=== PATIENT | female | born 1955 | race African-American/Black ===

== ENCOUNTER 2017-04-15 18:01 | Emergency (ER) | payer OTHER ==
[~2017-04-15] VITALS: Ht 154.9 cm; Wt 120.0 kg
[~2017-04-15 18:01] MED LIST: ASPI81 PO; AUGM875T PO; CELE40TA PO; FURO80TA3 PO; GLIP5 PO; HYDR10TA16 PO; HYDR200T42 PO; IBUP600T26 PO; KLOR20TA6 PO; LEFL20 PO; LORA10TA7 PO; MOME17I; RISP2TAB2 PO; SPIR25 PO; SULF500T35 PO; TRAZ150T2 PO
[2017-04-15 18:05] VITALS: BP 157/93; PULSE 104; RESP 18; TEMP 97.8; O2SAT 98
--- NOTE | 2017-04-15 19:17 | PD ---
HPI Chief Complaint: Injury Time Seen by Provider: 19:14 Travel History International Travel<30 days: No Contact w/Intl Traveler<30days: No Traveled to known affect area: No History of Present Illness HPI 62-year-old [id number] black female presents to emergency department complaints of right little finger pain after a fall prior to arrival. She states that she is unsure how she had injured her finger. She states that she has moderate to severe pain diffusely in her finger. She has been icing it down. She has had limited range of motion due to pain. No sensory changes. Denies injury to her head, neck or back. PFSH Past Medical History Hx Anticoagulant Therapy: No Atrial Fibrillation: Yes Cardiovascular Problems: Yes (AFIB) Diabetes: Yes Diminished Hearing: No Hypertension: Yes Musculoskeletal: Yes (FIBROMYALGIA) Psychiatric: Yes Migraines: Yes Sleep Apnea: Yes Menopausal: Yes Past Surgical History Cholecystectomy: Yes Hysterectomy: Yes Joint Replacement: Yes (KYRA. TOTAL KNEE ARTHROPLASTY) Social History Alcohol Use: No Tobacco Use: No Substance Use: No Allergies-Medications (Allergen,Severity, Reaction): Coded Allergies: Tramadol (Unverified Allergy, Intermediate, FELICIANO, 04/15/17) Toradol (Verified Allergy, Mild, N/V, 04/15/17) Reported Meds & Prescriptions Reported Meds & Active Scripts Active Lortab (Hydrocodone-Acetaminophen) 5-325 Mg Tab 1 Tab PO Q6H PRN Review of Systems Except as stated in HPI: all other systems reviewed are Neg Physical Exam Narrative GENERAL: This is a well-nourished, well-developed patient, in no apparent distress. SKIN: No rashes, ecchymoses or lesions. Warm and dry. HEAD: Atraumatic. Normocephalic. EYES: PERRL, EOMI, no discharge or injection. No scleral icterus. EARS: Clear NOSE: Nasal turbinates appear normal. THROAT: Mucosa pink and moist. Airway patent. NECK: Trachea midline. supple, moves head freely. LUNGS: Clear to auscultation. CV: Regular in rhythm. ABDOMEN: Soft nontender. EXT: No clubbing cyanosis. Examination of the right hand reveals pain and swelling with ecchymosis to the little finger. She has more localizing pain to the proximal mid phalanx. She has intact gross sensation with good Refill. She has significant decreased range of motion due to pain. She is able to fully extend but is limited flexion. Data Data Last Documented VS Vital Signs Date Time Temp Pulse Resp B/P Pulse Ox O2 Delivery O2 Flow Rate FiO2 04/15/17 18:05 97.8 104 18 157/93 98 Orders Finger ([id number]) (04/15/17 19:14) Ice/Cold Pack (04/15/17 19:14) Splint Or Brace Apply/Monitor (04/15/17 19:46) MDM Medical Decision Making Medical Screen Exam Complete: Yes Emergency Medical Condition: Yes Medical Record Reviewed: Yes Interpretation(s) Right little finger: Patient has a spiral fracture of the mid phalanx. Minimal disbursement Differential Diagnosis MDM: High Differential diagnoses: Fracture, sprain, strain, dislocation, contusion, neurovascular injury Narrative Course Ice pack applied. X-ray of the right little finger. Patient's x-ray reveals a fracture of the mid phalanx. She is placed in a finger splint. Lortab 5 milligram by mouth for pain. Diagnosis Primary Impression: Fracture of middle phalanx of right little finger Patient Instructions: Moderate Sedation in Children (ED) Additional Instructions: Rest. Elevation. Ice. Splint. Lortab. Follow-up with the orthopedic hand surgeon in the next 3-5 days. Med/Other Pt SpecificInfo: Prescription(s) given Scripts Hydrocodone-Acetaminophen (Lortab)5-325 Mg Tab1 Tab PO Q6H PRN (PAIN) #20 TAB Prov:Wilma Rojas MD 04/15/17 Disposition: 01 DISCHARGE HOME Condition: Stable Harlan Moncada Apr 15, 2017 19:17
[2017-04-15] MEDS ORDERED: HYDR-3533 PO (19:25)
--- NOTE | 2017-04-15 19:43 | RADRPT ---
EXAM DATE/TIME: 04/15/2017 19:27 [facility] COMPARISON: No previous studies available for comparison. INDICATIONS : Right hand, fifth digit pain, swelling, and bruising after fall. MEDICAL HISTORY : Diabetes mellitus type II. Rheumatoid arthritis. SURGICAL HISTORY : None. ENCOUNTER: Initial ACUITY: 1 day PAIN SCORE: 9/10 LOCATION: Right hand, 5th digit. FINDINGS: There is an acute fracture involving the right 5th middle phalanx with involvement of the proximal ar ticular surface. Diffuse osteopenia of the right hand is noted. Joint space narrowing is noted invo lving the 1st carpometacarpal joint, 1st and 2nd metacarpophalangeal joints and 1st interphalangeal j oint. Joint space narrowing is also noted involving the scaphotrapezium and scaphotrapezoid joints. CONCLUSION: 1. Acute fracture involving the right 5th middle phalanx with involvement of the proximal articular surface. 2. Diffuse osteopenia. 3. Joint space narrowing involving the joints of the right thumb, 2nd metacarpophalangeal joint and scaphotrapezium/scaphotrapezoid joints. Ronald Mckeon MD on April 15, 2017 at 19:37 Board Certified Radiologist. This report was verified electronically.
[2017-04-15] MEDS ORDERED: ACETAMINOPHEN/HYDROcodone 325 MG/5 MG TAB PO ONE (20:00)
== END 2017-04-15 20:26 | disposition home or self-care (01) ==
LOC: NEPK 18:01
DX: S62.626A Displaced fracture of middle phalanx of right little finger, initial encounter for closed fracture (principal); I48.91 Unspecified atrial fibrillation; E11.9 Type 2 diabetes mellitus without complications; I10 Essential (primary) hypertension; M79.7 Fibromyalgia; G47.30 Sleep apnea, unspecified; W18.30XA Fall on same level, unspecified, initial encounter
CPT/HCPCS: 29130; 73140

== ENCOUNTER 2017-04-25 01:08 | Emergency (ER) | payer OTHER ==
[~2017-04-25] VITALS: Ht 157.5 cm; Wt 120.0 kg
[~2017-04-25 01:08] MED LIST changes: -ASPI81 PO; -AUGM875T PO; -CELE40TA PO; -FURO80TA3 PO; -GLIP5 PO; +HYDR-3533 PO; -HYDR10TA16 PO; -HYDR200T42 PO; -IBUP600T26 PO; -KLOR20TA6 PO; -LEFL20 PO; -LORA10TA7 PO; -MOME17I; -RISP2TAB2 PO; -SPIR25 PO; -SULF500T35 PO; -TRAZ150T2 PO
[2017-04-25 01:11] VITALS: BP 178/96; PULSE 71; RESP 20; TEMP 98.6; O2SAT 98
--- NOTE | 2017-04-25 01:28 | PD ---
HPI Chief Complaint: Edema Time Seen by Provider: 01:20 Travel History International Travel<30 days: No Contact w/Intl Traveler<30days: No Traveled to known affect area: No History of Present Illness HPI 62-year-old female here for evaluation of right lower extremity edema. Patient reports history of lower extremity edema, right greater than left. She states that she just returned home from a trip to [place] about an hour and a half ago. While she was on the trip she forgot to take her Lasix with her and believes that this may be the reason why her leg is more swollen than usual. She denies chest pain or dyspnea. She is a mild pain in the right leg. No trauma. No fevers or chills. No history of DVT or PE. PFSH Past Medical History Hx Anticoagulant Therapy: No Atrial Fibrillation: Yes Cardiovascular Problems: Yes (AFIB) Diabetes: Yes Patient Takes Glucophage: No Diminished Hearing: No Hypertension: Yes Musculoskeletal: Yes (FIBROMYALGIA) Psychiatric: Yes Migraines: Yes Sleep Apnea: Yes Tetanus Vaccination: Unknown Influenza Vaccination: No Menopausal: Yes Past Surgical History Cholecystectomy: Yes Hysterectomy: Yes Joint Replacement: Yes (KYRA. TOTAL KNEE ARTHROPLASTY) Social History Alcohol Use: No Tobacco Use: No Substance Use: No Allergies-Medications (Allergen,Severity, Reaction): Coded Allergies: Tramadol (Unverified Allergy, Intermediate, FELICIANO, 04/15/17) Toradol (Verified Allergy, Mild, N/V, 04/15/17) Reported Meds & Prescriptions Reported Meds & Active Scripts Active Lortab (Hydrocodone-Acetaminophen) 5-325 Mg Tab 1 Tab PO Q6H PRN Reported Lasix (Furosemide) 40 Mg Tab 40 Mg PO DAILY Spironolactone 25 Mg Tab 25 Mg PO DAILY Potassium Chloride ER (Potassium Chloride) 20 Meq Tab 20 Meq PO DAILY Glipizide 5 Mg Tab 5 Mg PO DAILY Take 30 minutes before a meal Risperdal (Risperidone) 1 Mg Tab 5 Mg PO EVERY OTHER DAY Celexa (Citalopram Hydrobromide) 10 Mg Tab 60 Mg PO DAILY Review of Systems Except as stated in HPI: all other systems reviewed are Neg Physical Exam Narrative GENERAL: Pleasant, well-developed, well-nourished, sitting comfortably on chair , no apparent distress. SKIN: Focused skin assessment warm/dry. No pallor. No rashes. HEAD: Atraumatic. Normocephalic. EYES: Pupils equal and round. No scleral icterus. No injection or drainage. ENT: Mucous membranes pink and moist. NECK: Trachea midline. No JVD. CARDIOVASCULAR: Regular rate and rhythm. No murmur appreciated. RESPIRATORY: No accessory muscle use. Clear to auscultation. Breath sounds equal bilaterally. GASTROINTESTINAL: Abdomen soft, non-tender, nondistended. MUSCULOSKELETAL: No obvious deformities. No clubbing. No cyanosis. Mild left lower extremity edema. There is significant right lower extremity edema with the diameter of the right leg about double the diameter of the left leg. All compartments in the right lower extremity are supple. There is no tenderness or crepitus. NEUROLOGICAL: Awake and alert. No obvious cranial nerve deficits. Motor grossly within normal limits. Normal speech. PSYCHIATRIC: Appropriate mood and affect; insight and judgment normal. Data Data Last Documented VS Vital Signs Date Time Temp Pulse Resp B/P Pulse Ox O2 Delivery O2 Flow Rate FiO2 04/25/17 03:22 53 16 142/75 98 Room Air 04/25/17 01:11 98.6 Orders Basic Metabolic Panel (Bmp) (04/25/17 01:25) Complete Blood Count With Diff (04/25/17 01:25) Iv Access Insert/Monitor (04/25/17 01:25) Ecg Monitoring (04/25/17 01:25) Oximetry (04/25/17 01:25) Sodium Chloride 0.9% Flush (Ns Flush) (04/25/17 01:30) B-Type Natriuretic Peptide (04/25/17 01:25) Us Leg Venous Doppler (04/25/17 ) Furosemide Inj (Lasix Inj) (04/25/17 02:30) Labs Laboratory Tests Test 04/25/17 04/25/17 01:39 01:41 White Blood Count 7.0 TH/MM3 Red Blood Count 3.73 MIL/MM3 Hemoglobin 11.1 GM/DL Hematocrit 33.2 % Mean Corpuscular Volume 89.0 FL Mean Corpuscular Hemoglobin 29.7 PG Mean Corpuscular Hemoglobin 33.4 % Concent Red Cell Distribution Width 14.5 % Platelet Count 229 TH/MM3 Mean Platelet Volume 8.7 FL Neutrophils (%) (Auto) 55.1 % Lymphocytes (%) (Auto) 30.4 % Monocytes (%) (Auto) 7.6 % Eosinophils (%) (Auto) 6.5 % Basophils (%) (Auto) 0.4 % Neutrophils # (Auto) 3.8 TH/MM3 Lymphocytes # (Auto) 2.1 TH/MM3 Monocytes # (Auto) 0.5 TH/MM3 Eosinophils # (Auto) 0.5 TH/MM3 Basophils # (Auto) 0.0 TH/MM3 CBC Comment DIFF FINAL Differential Comment Sodium Level 141 MEQ/L Potassium Level 3.8 MEQ/L Chloride Level 108 MEQ/L Carbon Dioxide Level 28.0 MEQ/L Anion Gap 5 MEQ/L Blood Urea Nitrogen 10 MG/DL Creatinine 0.52 MG/DL Estimat Glomerular Filtration 145 ML/MIN Rate Random Glucose 106 MG/DL Calcium Level 8.5 MG/DL B-Type Natriuretic Peptide 10 PG/ML MDM Medical Decision Making Medical Screen Exam Complete: Yes Emergency Medical Condition: Yes Medical Record Reviewed: Yes Differential Diagnosis DVT, venous insufficiency, fluid overload Narrative Course Vital signs show heart rate 71, blood pressure 178/96, pulse ox 98% on room air , oral temp of 98.6 Fahrenheit. CBC shows WBC 7, hemoglobin 11.1, hematocrit 33.2, platelets 229. CMP is unremarkable. BNP is 10. Right lower extremity venous ultrasound: Negative for DVT. Patient was made aware of all findings. She is resting comfortably. She was given 40 mg of IV Lasix here. She is stable for discharge home and states she hasn't point with her primary care physician in 3 days. She is requesting a refill of her potassium. She states she has plenty of Lasix at home. She is stable for discharge home with outpatient follow-up. She was informed on when to return to the emergency department. She verbalizes understanding and agreement with plan. Diagnosis Primary Impression: Leg edema, right Referrals: Primary Care Physician 3 days Additional Instructions: Follow-up with your primary care physician this week as scheduled. Return to the emergency department for worsening symptoms or any other concerns. Scripts Potassium Chloride ER 10 Meq Tab10 Meq PO DAILY #30 TAB Ref 0 Prov:Hay Moreira MD 04/25/17 Disposition: DISCHARGE HOME Condition: Stable Hay Moreira MD Apr 25, 2017 01:28
[2017-04-25] MEDS ORDERED: POTA-163 PO (01:30)
[2017-04-25] MEDS ORDERED: GLIP5TAB8 PO (01:30)
[2017-04-25] MEDS ORDERED: CELE10TA PO (01:30)
[2017-04-25] MEDS ORDERED: SPIR25TA PO (01:30)
[2017-04-25] MEDS ORDERED: FURO1TAB60 PO (01:30)
[2017-04-25] MEDS ORDERED: SODIUM CHLORIDE 0.9% FLUSH 10 ML FLUSH IV FLUSH PRN (01:30)
[2017-04-25] MEDS ORDERED: RISP1 PO (01:30)
[2017-04-25 01:40] VITALS: RESP 18; O2SAT 97
[2017-04-25 01:50] LABS: AUTOMATED NEUTROPHIL # 3.8 TH/MM3 (1.8-7.7); BASOPHIL % 0.4 % (0.0-2.0); EOSINOPHIL # 0.5 TH/MM3 (0-0.4); EOSINOPHIL % 6.5 % (0.0-4.0); HEMATOCRIT 33.2 % (35.0-46.0); HEMO FLAGS DIFF FINAL; LYMPH % 30.4 % (9.0-44.0); LYMPHOCYTE # 2.1 TH/MM3 (1.0-4.8); MEAN CORPUSCULAR HEMOGLOBIN 29.7 PG (27.0-34.0); MEAN CORPUSCULAR HGB CONC 33.4 % (32.0-36.0); MONO % 7.6 % (0.0-8.0); NEUT % 55.1 % (16.0-70.0); PLATELET COUNT 229 TH/MM3 (150-450); RED BLOOD COUNT 3.73 MIL/MM3 (4.00-5.30); RED CELL DISTRIBUTION WIDTH 14.5 % (11.6-17.2)
[2017-04-25 02:14] LABS: POTASSIUM 3.8 MEQ/L (3.5-5.1)
[2017-04-25] MEDS ORDERED: FUROSEMIDE 40 MG/4 ML VIAL IV PUSH ONE (02:30)
[2017-04-25 03:22] VITALS: BP 142/75; PULSE 53; RESP 16; O2SAT 98
--- NOTE | 2017-04-25 03:38 | RADRPT ---
EXAM DATE/TIME: 04/25/2017 02:43 [facility] COMPARISON: No previous studies available for comparison. INDICATIONS : Right leg swelling. MEDICAL HISTORY : Diabetic. Afib. Hypertension. Fybromyalgia. SURGICAL HISTORY : Hysterectomy. Cholecystectomy. Bilateral knee arthroplasty. ENCOUNTER: Subsequent ACUITY: 1 week PAIN SCORE: 7/10 LOCATION: Right leg. TECHNIQUE: Venous ultrasound of the leg was performed from the inguinal ligament to the proximal calf. Real-jessica e, color Doppler and spectral tracing, compression and augmentation techniques were used. FINDINGS: There is normal compressibility of the deep venous system from the inguinal region to the proximal ca lf. No echogenic clot is seen in the lumen of the common femoral, femoral, popliteal, and posterior tibial veins. There is a normal response of the venous system to proximal and distal augmentation an d respiration. CONCLUSION: No DVT in right leg. Hi Jackson MD on April 25, 2017 at 3:35 Board Certified Radiologist. This report was verified electronically.
[2017-04-25] MEDS ORDERED: POTA10TA2 PO (03:49)
== END 2017-04-25 04:07 | disposition home or self-care (01) ==
LOC: NEPE 01:08
DX: R60.0 Localized edema (principal); I48.91 Unspecified atrial fibrillation
CPT/HCPCS: 80048; 83880; 85025; 93971; 96374; 99285; J1940